=== PATIENT | female | born 1985 | race Caucasian/White ===

== ENCOUNTER 2021-01-07 15:51 | Emergency (ER) | payer BC ==
[2021-01-07 17:30] LABS: HEMOGLOBIN 14.7 gm/dl (12.3-15.3); RED BLOOD COUNT 5.01 M/UL (4.00-5.10); WHITE BLOOD COUNT 8.3 K/UL (4.5-11.0)
[2021-01-07] MEDS ORDERED: PROVENTIL HFA6.7 GM INH (17:37)
[2021-01-07 18:42] LABS: BUN/CREATININE RATIO 8 (0-10)
[2021-01-07] MEDS ORDERED: K-DUR TAB 20 M20 MEQ PO (19:03)
[2021-01-07] MEDS ORDERED: DOXYCYCLINE HY100 M2 PO (19:05)
== END 2021-01-07 19:18 | disposition home or self-care (01) ==
LOC: ER1 15:51
PROVIDERS: Family Medicine
DX: U07.1 COVID-19 (principal); J12.82 Pneumonia due to coronavirus disease 2019; J45.909 Unspecified asthma, uncomplicated; Z88.1 Allergy status to other antibiotic agents; Z79.899 Other long term (current) drug therapy
CPT/HCPCS: 71045; 80053; 82550; 82553; 83615; 83874; 84484; 85025; 86140; 93005; 94664; 99284; J7030